=== PATIENT | female | born 1955 | race Caucasian/White ===

== ENCOUNTER 2016-12-25 09:29 | Outpatient (CLI) | payer OTHER ==
--- NOTE | 2016-12-25 12:41 | DIAGNOSTIC IMAGING REPORT ---
PROCEDURE: MG BILATERAL SCREENING W/CAD INDICATION: SCREENING TECHNIQUE: Bilateral CC and MLO digital views. COMPARISON: Compared to 12/20/2015, 11/06/2014, and 09/02/2013. FINDINGS: Computer-aided detection applied. Mildly dense with stable asymmetric normal parenchyma in the upper outer right breast . No change. IMPRESSION: 1. Negative mammogram. RESULT CODE: 1- Negative. A. A negative report should not delay biopsy if a dominant or clinically suspicious mass is present. 10-15% of cancers are not identified by x-ray. B. A negative report may reinforce clinical impression. C. Adenosis and dense breasts may obscure an underlying neoplasm. D. False positive reports average 6-10%. E.. A yearly screening mammogram is recommended. A reminder letter will be scheduled.
== END 2016-12-25 23:00 ==
LOC: MAM SRH 09:29
DX: Z12.31 Encounter for screening mammogram for malignant neoplasm of breast (principal)